=== PATIENT | male | born 1955 | race Native Hawaiian/Other Pacific Islander ===

== ENCOUNTER 2016-07-19 22:51 | Emergency (ER) | payer OTHER ==
[~2016-07-19] VITALS: Ht 190.5 cm; Wt 102.1 kg
[2016-07-19] MEDS ORDERED: ATEN25TA21 PO (23:31)
[2016-07-19] MEDS ORDERED: PAXIL40 MG PO (23:31)
[2016-07-19] MEDS ORDERED: LISI20TA11 PO (23:32)
== END 2016-07-20 01:00 | disposition home or self-care (01) ==
LOC: ED 22:51
DX: S20.211A Contusion of right front wall of thorax, initial encounter (principal); S00.12XA Contusion of left eyelid and periocular area, initial encounter; S22.41XA Multiple fractures of ribs, right side, initial encounter for closed fracture; W18.09XA Striking against other object with subsequent fall, initial encounter; Y92.098 Other place in other non-institutional residence as the place of occurrence of the external cause
CPT/HCPCS: 90471; 90715; 96372; 99283; J1885